=== PATIENT | female | born 1990 | race Hispanic/Latino ===

== ENCOUNTER 2019-01-25 01:49 | Emergency (ER) | payer SELFPAY ==
--- NOTE | 2019-01-25 02:17 | ER ---
Nurse's Notes [facility] Name: Pari Garcia Age: 28 yrs Sex: Female : 1990 Arrival Date: 01/25/2019 Time: 01:51 Bed 5 Private MD: Diagnosis: Otitis media, unspecified, left ear Presentation: 01/25 01:58 Presenting complaint: Patient states: I started having left ear pain yesterday and tl1 today it is radiating to the left side of my throat and the left side of my head. Transition of care: patient was not received from another setting of care. Onset of symptoms was January 24, 2019. Risk Assessment: Do you want to hurt yourself or someone else? Patient reports no desire to harm self or others. Initial Sepsis Screen: Does the patient meet any 2 criteria? No. Patient's initial sepsis screen is negative. Does the patient have a suspected source of infection? No. Patient's initial sepsis screen is negative. Care prior to arrival: Medication(s) given: Tylenol. 01:58 Method Of Arrival: Ambulatory tl1 01:58 Acuity: ARAMIS 4 tl1 Triage Assessment: 02:27 Pain: Also complains of. 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 - Social history:: Smoking status: Patient/guardian denies using tobacco, never smoked, Patient/guardian denies using alcohol, street drugs. - Ebola Screening: : Patient negative for fever greater than or equal to 101.5 degrees Fahrenheit, and additional compatible Ebola Virus Disease symptoms Patient denies exposure to infectious person Patient denies travel to an Ebola-affected area in the 21 days before illness onset. Screenin:18 Abuse screen: Denies threats or abuse. Denies injuries from another. Nutritional tl1 screening: No deficits noted. Tuberculosis screening: No symptoms or risk factors identified. Fall Risk None identified. Assessment: 02:16 General: Appears uncomfortable, Behavior is calm, cooperative, appropriate for age. tl1 Pain: Complains of pain in left ear Pain currently is 6 out of 10 on a pain scale. Neuro: Level of Consciousness is awake, alert, obeys commands, Oriented to person, place, time, situation. Cardiovascular: No deficits noted. Respiratory: Airway is patent Trachea midline Respiratory effort is even, unlabored, Breath sounds are clear bilaterally. GI: Abdomen is non-distended, Bowel sounds present X 4 quads. Abd is soft and non tender X 4 quads. : No deficits noted. EENT: Reports pain in left ear. Derm: No signs and/or symptoms reported regarding the dermatologic system. Musculoskeletal: No signs and/or symptoms reported regarding the musculoskeletal system. Vital Signs: 02:05 BP 140 / 95; Pulse 95; Resp 17; Temp 97.7; Pulse Ox 98% on R/A; Weight 82.55 kg; Height tl1 5 ft. 3 in. (160.02 cm); Pain 6/10; 02:05 Body Mass Index 32.24 (82.55 kg, 160.02 cm) tl1 ED Course: 01:51 Patient arrived in ED. ag3 01:56 Bjorn Bardales PA is PHCP. cp 01:56 Bjorn Mcneil MD is Attending Physician. cp 01:57 Rebeca Denney RN is Primary Nurse. tl1 01:59 Triage completed. tl1 02:07 Arm band placed on right wrist. tl1 02:07 Bed in low position. Call light in reach. Side rails up X 1. tl1 02:18 No provider procedures requiring assistance completed. Patient did not have IV access tl1 during this emergency room visit. Administered Medications: 02:16 Drug: Augmentin 875 mg Route: PO; tl1 02:26 Follow up: Response: No adverse reaction; No change in condition tl1 02:16 Not Given (Patient Refused): Tylenol 1000 mg PO once tl1 02:16 Drug: Motrin 800 mg Route: PO; tl1 02:26 Follow up: Response: No adverse reaction; No change in condition tl1 Outcome: 02:16 Discharge ordered by . cp 02:27 Discharged to home ambulatory. tl1 02:27 Condition: good 02:27 Discharge instructions given to patient, Instructed on discharge instructions, follow up and referral plans. medication usage, Demonstrated understanding of instructions, follow-up care, medications, Prescriptions given X 1. 02:28 Patient left the ED. tl1 Signatures: Rebeca Denney RN RN tl1 Bjorn Bardales PA PA cp Gomez, Alice 3
--- NOTE | 2019-01-25 02:17 | EDPHYS ---
Physician Documentation [facility] Name: Pari Garcia Age: 28 yrs Sex: Female : 1990 Arrival Date: 01/25/2019 Time: 01:51 Bed 5 Private MD: ED Physician Bjorn Mcneil HPI: 01/25 02:08 This 28 yrs old Female presents to ER via Ambulatory with complaints of Ear cp Pain. 02:08 The patient presents with pain, that is acute, tenderness. The complaints affect the cp left ear. Onset: The symptoms/episode began/occurred yesterday. The patient complains of pain to the left side of head. Associated signs and symptoms: Pertinent positives: left side throat pain, Pertinent negatives: fever, neck stiffness, sinus congestion, sinus tenderness, vomiting. 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 - Social history:: Smoking status: Patient/guardian denies using tobacco, never smoked, Patient/guardian denies using alcohol, street drugs. - Ebola Screening: : Patient negative for fever greater than or equal to 101.5 degrees Fahrenheit, and additional compatible Ebola Virus Disease symptoms Patient denies exposure to infectious person Patient denies travel to an Ebola-affected area in the 21 days before illness onset. ROS: 02:09 Eyes: Negative for injury, pain, redness, and discharge. cp 02:09 Constitutional: Negative for body aches, chills, fever, poor PO intake. 02:09 ENT: Positive for ear pain, sore throat, Negative for drainage from ear(s), sinus congestion, sinus pain, difficulty swallowing, difficulty handling secretions, hoarseness. 02:09 Neck: Negative for pain with movement, pain at rest, stiffness. 02:09 Cardiovascular: Negative for chest pain. 02:09 Respiratory: Negative for cough, wheezing. 02:09 Abdomen/GI: Negative for abdominal pain, nausea, vomiting, and diarrhea. 02:09 Skin: Negative for cellulitis, rash. 02:09 Neuro: Positive for headache, of the left side of head, Negative for altered mental status, dizziness. 02:09 All other systems are negative. Exam: 02:12 Head/Face: Normocephalic, atraumatic. cp 02:12 Constitutional: The patient appears in no acute distress, alert, awake, non-toxic, well developed, well nourished. 02:12 Eyes: Periorbital structures: appear normal, Conjunctiva: normal, no exudate, no injection, Lids and lashes: appear normal, bilaterally. 02:12 ENT: External ear(s): are unremarkable, Ear canal(s): erythema, that is moderate, of the left canal, TM's: erythema, that is moderate, on the left, Examination of the other ear shows no obvious abnormality, Nose: is normal, Mouth: Lips: moist, Oral mucosa: pink and intact, moist, Posterior pharynx: Airway: no evidence of obstruction, patent, Tonsils: no enlargement, no erythema, no exudate, Uvula: midline, erythema, is not appreciated, exudate, is not appreciated. 02:12 Neck: ROM/movement: is normal, is supple, without pain, no range of motions limitations, no meningismus, no nuchal rigidity, Lymph nodes: no appreciated lymphadenopathy. 02:12 Chest/axilla: Inspection: normal, Palpation: is normal, no crepitus, no tenderness. 02:12 Cardiovascular: Rate: normal, Rhythm: regular. 02:12 Respiratory: the patient does not display signs of respiratory distress, Respirations: normal, no use of accessory muscles, no retractions, no splinting, no tachypnea. 02:12 Skin: cellulitis, is not appreciated, no rash present. Vital Signs: 02:05 BP 140 / 95; Pulse 95; Resp 17; Temp 97.7; Pulse Ox 98% on R/A; Weight 82.55 kg; Height tl1 5 ft. 3 in. (160.02 cm); Pain 6/10; 02:05 Body Mass Index 32.24 (82.55 kg, 160.02 cm) tl1 MDM: 01:56 Patient medically screened. cp 02:00 Differential diagnosis: otitis media, otitis externa, ruptured TM, migraine, sinusitis. cp 02:15 Data reviewed: vital signs, nurses notes, and as a result, I will discharge patient. cp 02:15 Counseling: I had a detailed discussion with the patient and/or guardian regarding: the cp historical points, exam findings, and any diagnostic results supporting the discharge/admit diagnosis, to return to the emergency department if symptoms worsen or persist or if there are any questions or concerns that arise at home. Response to treatment: the patient's symptoms have mildly improved after treatment, and as a result, I will discharge patient. Administered Medications: 02:16 Drug: Augmentin 875 mg Route: PO; tl1 02:26 Follow up: Response: No adverse reaction; No change in condition tl1 02:16 Not Given (Patient Refused): Tylenol 1000 mg PO once tl1 02:16 Drug: Motrin 800 mg Route: PO; tl1 02:26 Follow up: Response: No adverse reaction; No change in condition tl1 Disposition: 01/25/19 02:16 Discharged to Home. Impression: Otitis media, unspecified, left ear. - Condition is Stable. - Discharge Instructions: Otitis Media, Adult. - Prescriptions for Augmentin 875- 125 mg Oral Tablet - take 1 tablet by ORAL route every 12 hours for 10 days; 20 tablet. - Work release form, Medication Reconciliation Form, Thank You Letter, Antibiotic Education, Prescription Opioid Use form. - Follow up: Private Physician; When: 2 - 3 days; Reason: Recheck today's complaints. - Problem is new. - Symptoms have improved. Addendum: 01/28/2019 11:23 Co-signature as Attending Physician, Bjorn Mcneil MD I agree with the assessment and c henderson plan of care. Signatures: Bjorn Mcneil MD MD cha Lasagna, Tonya RN RN tl1 Bjorn Bardales PA PA cp Corrections: (The following items were deleted from the chart) 01/25 02:28 02:16 01/25/2019 02:16 Discharged to Home. Impression: Otitis media, unspecified, left tl1 ear. Condition is Stable. Forms are Medication Reconciliation Form, Thank You Letter, Antibiotic Education, Prescription Opioid Use. Follow up: Private Physician; When: 2 - 3 days; Reason: Recheck today's complaints. Problem is new. Symptoms have improved. cp
[2019-01-25] MEDS ORDERED: IBUPROFEN 400 MG TAB ONE (02:25)
[2019-01-25] MEDS ORDERED: AMOX/K CLAV 875 MG TAB ONE (02:26)
== END 2019-01-25 02:28 | disposition home or self-care (01) ==
LOC: ER 01:49
DX: H66.92 Otitis media, unspecified, left ear (principal)
CPT/HCPCS: 99283